=== PATIENT | male | born 1950 | race Caucasian/White ===

== ENCOUNTER 2021-04-21 14:59 | Inpatient (IN) | payer MEDICARE ==
[~2021-04-21] VITALS: Ht 175.3 cm; Wt 85.7 kg
[2021-04-21 15:46] LABS: HEMOGLOBIN 13.5 gm/dl (14.0-17.5); RED BLOOD COUNT 4.42 M/UL (4.20-5.50); WHITE BLOOD COUNT 11.3 K/UL (4.5-11.0)
[2021-04-21 16:08] LABS: BUN/CREATININE RATIO 19 (0-10)
[2021-04-21] MEDS ORDERED: CRESTOR10 MG PO (22:35)
[2021-04-22 02:19] LABS: HEMOGLOBIN 12.2 gm/dl (14.0-17.5); RED BLOOD COUNT 4.04 M/UL (4.20-5.50); WHITE BLOOD COUNT 9.4 K/UL (4.5-11.0)
[2021-04-22] MEDS ORDERED: HYDROCODON-ACE1 EAC4 PO ×2 (09:10→09:58)
[2021-04-22] MEDS ORDERED: LEVOFLOXACIN500 MG PO (09:58)
--- NOTE | 2021-04-22 13:22 | NUR ---
TWO PRESCRIPTIONS WERE ESENT TO THE [facility] FOR HYDROCODONE-ACETAMINOPHEN 5/325MG. ONE SHOWS THAT THE PRESCRIPTION WAS SENT AND ONE PENDING. NOTIFIED AND HE STATES TO CANCEL THE ONE FROM DR. POLLACK AND KEEP THE ONE THAT HE SENT. ATTEMPTED TO CANCEL ORDER, IT WOULD NOT WORK. CALLED [facility] TO LET THEM KNOW THAT IF THE SECOND PRESCRIPTION WENT THROUGH THAT IT WAS VOID.
== END 2021-04-22 13:57 | disposition home or self-care (01) | DRG 244 ==
LOC: ER1 14:59 → CDU 16:16 → PROG CARE 21:30
PROVIDERS: Emergency Medicine; Physician Assistant Medical; ADMIT Internal Medicine
PROC: 0JH607Z Insertion of Cardiac Resynchronization Pacemaker Pulse Generator into Chest Subcutaneous Tissue and Fascia, Open Approach (ICD-10-PCS; principal; 2021-04-21)
PROC: 02H63JZ Insertion of Pacemaker Lead into Right Atrium, Percutaneous Approach (ICD-10-PCS; 2021-04-21)
PROC: 02HK3JZ Insertion of Pacemaker Lead into Right Ventricle, Percutaneous Approach (ICD-10-PCS; 2021-04-21)
PROC: 02HL3JZ Insertion of Pacemaker Lead into Left Ventricle, Percutaneous Approach (ICD-10-PCS; 2021-04-21)
DX: I44.2 Atrioventricular block, complete (principal); I45.2 Bifascicular block; E78.5 Hyperlipidemia, unspecified; R00.1 Bradycardia, unspecified; F17.210 Nicotine dependence, cigarettes, uncomplicated; Z20.822 Contact with and (suspected) exposure to COVID-19; I44.7 Left bundle-branch block, unspecified; R03.0 Elevated blood-pressure reading, without diagnosis of hypertension; I08.1 Rheumatic disorders of both mitral and tricuspid valves; I27.20 Pulmonary hypertension, unspecified; J44.9 Chronic obstructive pulmonary disease, unspecified; Z82.49 Family history of ischemic heart disease and other diseases of the circulatory system
CPT/HCPCS: ECHO; 33208; 33225; 36415; 71045; 80053; 82550; 82553; 83735; 83874; 83880; 84439; 84443; 84484; 85025; 85027; 85610; 85730; 93005; 93306; 99152; 99153; 99285; C1769; C1898; C1900; C2621; J0360; J1644; J2250; J3010; J3370; J7040; J7050; J7070; Q9965; U0002

== ENCOUNTER → 2022-03-15 | Outpatient (CLI) | payer MEDICARE ==
[~2022-03-15] MED LIST: CRESTOR10 MG PO; HYDROCODON-ACE1 EAC4 PO; LEVOFLOXACIN500 MG PO
== END ==
LOC: HEART 5 03-07 10:00
DX: I50.22 Chronic systolic (congestive) heart failure (principal); R06.02 Shortness of breath; I27.20 Pulmonary hypertension, unspecified; I07.1 Rheumatic tricuspid insufficiency; Z95.0 Presence of cardiac pacemaker
CPT/HCPCS: 93306